=== PATIENT | female | born 1995 | race American Indian/Alaskan Native ===

== ENCOUNTER 2016-08-16 09:59 | Emergency (ER) | payer SELFPAY ==
[2016-08-16 10:11] VITALS: BP 107/65
--- NOTE | 2016-08-16 11:44 | Emergency Department Report ---
Chief Complaint: Dental/Oral Stated Complaint: TOOTH PAIN Time Seen by Provider: 08/16/16 11:24 - HPI History of Present Illness: 21-year-old female presents today with toothache of the left lower second to last 26 months. Patient states the pain worsened 3 days ago. Patient tried Aleve, Tylenol, Goody pattern with alcohol. Patient is to follow-up with a dentist. Denies history of similar symptoms. Denies fever, chills, nausea, vomiting, chest pain, shortness of breath, abdominal pain. - ROS Review of Systems: Per HPI - Exam Vital Signs: Vital Signs 08/16/16 10:07 Temperature 98.4 F Pulse Rate 77 Blood Pressure 107/65 O2 Sat by Pulse 100 Oximetry Physical Exam: GENERAL: The patient is well-developed and well-nourished. Patient is in NAD. HEAD: Normocephalic. Atraumatic. EYES: PERRL. EARS: External auditory canals and tympanic membranes clear; hearing grossly intact. NOSE: Normal nasal mucosa with no nasal discharge. THROAT: No erythema, swelling or exudates. DENTAL: Tenderness to palpation of lower left 2nd molar. Positive for tooth decay. NECK: Supple, nontender, without lymphadenopathy. CHEST/LUNGS: Clear to auscultation throughout. HEART/CARDIOVASCULAR: Regular rate and rhythm. ABDOMEN: Abdomen is soft, nontender. No guarding or rebound tenderness. EXTREMITIES: Peripheral pulses intact. Capillary refill less than 2 seconds. NEURO: Alert and oriented x 3. Normal gait. MSE screening note: Focused history and physical exam performed. Due to findings the following was ordered: ED Disposition for MSE Disposition: MEDICAL SCREENING EXAM-LEFT Condition: Stable Referrals: PRIMARY CARE, [Primary Care Provider] - 3-5 Days
== END 2016-08-16 12:18 | disposition left against medical advice (07) ==
LOC: ED 09:59
DX: K08.89 Other specified disorders of teeth and supporting structures (principal); Z53.21 Procedure and treatment not carried out due to patient leaving prior to being seen by health care provider